=== PATIENT | male | born 1970 | race American Indian/Alaskan Native ===

== ENCOUNTER 2018-11-13 10:00 | Emergency (ER) | payer OTHER ==
[2018-11-13 10:07] VITALS: BMI 27.8
[2018-11-13 10:20] VITALS: BP 124/82; PULSE 84; RESP 16; TEMP 97.8; O2SAT 99
--- NOTE | 2018-11-13 10:26 | ED PDOC ---
Arrival/HPI - General Chief Complaint: Eye Problem Time Seen by Provider: 11/13/18 10:14 Historian: Patient, Spouse - History of Present Illness Time/Duration: Other (Last week) Symptom Onset: Gradual Symptom Course: Worsening Quality: Aching Severity Level: Moderate Activities at Onset: Rest Associated Symptoms (Text): 11/13/18 10:24 Patient reports that approximately 6 days prior to arrival he developed a right eye pain and a visual disturbance consistent with previous diagnosis of optic neuritis. He was worked up for multiple sclerosis which was negative. 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 He presents to the emergency department this morning with no change in his symptoms. There is no trauma. No headache. No dizziness. 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 Motta and he will be seen in the office now. Past Medical History - Provider Review Primary Care Provider: Non [facility] Provider, - Cardiac Hx Cardiac Disorders: No - Pulmonary Hx Respiratory Disorders: No - Neurological Hx Neurological Disorder: No - HEENT Hx HEENT Disorder: Yes Other/Comment: optic neuritis - Psychiatric Hx Depression: No Hx Emotional Abuse: No Hx Physical Abuse: No Hx Substance Use: No - Surgical History Hx Appendectomy: Yes - Anesthesia Hx Anesthesia: Yes Hx Anesthesia Reactions: No Hx Malignant Hyperthermia: No - Suicidal Assessment Feels Threatened In Home Enviroment: No Family/Social History - Physician Review Nursing Documentation Reviewed: Yes Family/Social History: Unknown Family HX Smoking Status: Light Smoker < 10 Cigarettes Daily Hx Alcohol Use: No Hx Substance Use: No Hx Substance Use Treatment: No Allergies/Home Meds Allergies/Adverse Reactions: Allergies No Known Allergies Allergy (Verified 11/13/18 10:06) Home Medications: Home Meds Medication Instructions Recorded Confirmed No Known Home Med 02/05/12 11/13/18 Review of Systems - Physician Review All systems were reviewed & negative as marked: Yes Physical Exam Vital Signs Temp Pulse Resp BP Pulse Ox 11/13/18 10:20 97.8 F 84 16 124/82 99 Temperature: Afebrile Blood Pressure: Normal Pulse: Regular Respiratory Rate: Normal Appearance: Positive for: Well-Appearing, Non-Toxic, Comfortable Pain Distress: None Mental Status: Positive for: Alert and Oriented X 3 - Systems Exam Pupils: Present: PERRL Extroacular Muscles: Present: EOMI Conjunctiva: Present: Normal Disposition/Present on Arrival - Present on Arrival Any Indicators Present on Arrival: No History of DVT/PE: No History of Uncontrolled Diabetes: No Urinary Catheter: No History of Decub. Ulcer: No History Surgical Site Infection Following: None - Disposition Have Diagnosis and Disposition been Completed?: Yes Diagnosis: Optic neuritis Disposition: HOME/ ROUTINE Disposition Time: 10:25 Patient Plan: Discharge Condition: GOOD Additional Instructions: Dr. Motta's office now. Referrals: Filippo Motta MD [Staff Provider] - Follow up with primary
== END 2018-11-13 10:50 | disposition home or self-care (01) ==
LOC: ED 10:00
DX: H46.9 Unspecified optic neuritis (principal)

== ENCOUNTER 2018-11-13 16:29 | Outpatient (CLI) | payer OTHER | END 2018-11-13 16:30 | disposition home or self-care (01) | LOC: LAB 16:29 ==